=== PATIENT | female | born 1985 | race American Indian/Alaskan Native ===

== ENCOUNTER 2020-02-12 03:43 | Emergency (ER) | payer SELFPAY ==
--- NOTE | 2020-02-12 04:58 | Emergency Department Report ---
<SHANTHIDILIP - Last Filed: 02/12/20 06:33> ED Chest Pain HPI - General Chief Complaint: Chest Pain Stated Complaint: ANXIETY Source: patient, EMS Mode of arrival: Ambulatory Limitations: No Limitations - History of Present Illness Initial Comments: Patient is a 34-year-old -[place] female with a history of chronic anxiety and heavy alcohol abuse who presents to the ED with a complaint of acute onset persistent substernal chest pain with shortness of breath and palpitations for the last 2 days. Patient states that she has been drinking alcohol heavily and that the last time she drank alcohol was 6 hours prior to arrival in the ED. Patient states that about 2 days ago she drank alcohol heavily at a club and that the symptoms have been persistent since then. Patient states that she has not been able to sleep because each time she lays down to sleep her symptoms get worse and she has been scared. Patient also complains of intermittent nausea and vomiting which gets worse when she lays down to sleep. Patient denies dizziness, syncope, abdominal pain, sore throat, headache, change in vision, seizures, dysuria, urinary frequency and urgency, back pain or cough. MD Complaint: chest pain -: days(s) (2) Onset: during rest, other (Heavy alcohol abuse) Pain Location: substernal Pain Radiation: none Severity: severe Severity scale (0 -10): 7 Quality: aching, sharp Consistency: constant Improves With: remaining still, other (sitting still) Worsens With: supine, palpation, movement Context: other (Heavy alcohol abuse) re: nausea, vomting, dyspnea. denies: diaphoresis, sense of impending doom Other Symptoms: palpitations. denies: cough, fever, syncope, rash, acid taste in mouth, leg swelling, burping Treatments Prior to Arrival: none Aspirin use within the Past 7 Days: (0) No - Related Data On Oral Contraceptives: No Previous Rx's Medication Instructions Recorded Last Taken Type Famotidine [Pepcid] 20 mg PO BID #60 tablet 02/12/20 Unknown Rx Naproxen 500 mg PO Q12H PRN #30 tablet 02/12/20 Unknown Rx Ondansetron [Zofran Odt] 4 mg PO Q6HR PRN #20 tab.rapdis 02/12/20 Unknown Rx hydrOXYzine PAMOATE [Vistaril] 25 mg PO Q12HR PRN #30 capsule 02/12/20 Unknown Rx Allergies Allergy/AdvReac Type Severity Reaction Status Date / Time No Known Allergies Allergy Unverified 02/12/20 04:08 Heart Score - HEART Score History: Slightly suspicious EKG: Normal Age: < 45 Risk factors: No known risk factors Troponin: < normal limit HEART Score: 0 - Critical Actions Critical Actions: 0-3 pts:0.9-1.7%risk of adverse cardiac event.Candidate for discharge ED Review of Systems Constitutional: malaise, other (Anxious). denies: chills, fever Eyes: denies: eye pain, eye discharge, vision change ENT: denies: ear pain, throat pain Respiratory: denies: cough, shortness of breath, wheezing Cardiovascular: chest pain (Substernal chest pain), palpitations, dyspnea on exertion. denies: edema, syncope, paroxysmal nocturnal dyspnea Endocrine: no symptoms reported Gastrointestinal: nausea, vomiting. denies: abdominal pain, diarrhea Genitourinary: denies: urgency, dysuria, discharge Musculoskeletal: denies: back pain, joint swelling, arthralgia Skin: denies: rash, lesions Neurological: headache. denies: weakness, paresthesias Psychiatric: anxiety, depression. denies: auditory hallucinations, visual hallucinations, homicidal thoughts, suicidal thoughts Hematological/Lymphatic: denies: easy bleeding, easy bruising ED Past Medical Hx - Past Medical History Previous Medical History?: Yes Hx Psychiatric Treatment: Yes (Anxiety) - Surgical History Past Surgical History?: No - Social History Smoking Status: Never Smoker Substance Use Type: None - Medications Home Medications: Home Medications Medication Instructions Recorded Confirmed Last Taken Type Famotidine [Pepcid] 20 mg PO BID #60 tablet 02/12/20 Unknown Rx Naproxen 500 mg PO Q12H PRN #30 tablet 02/12/20 Unknown Rx Ondansetron [Zofran Odt] 4 mg PO Q6HR PRN #20 tab.rapdis 02/12/20 Unknown Rx hydrOXYzine PAMOATE [Vistaril] 25 mg PO Q12HR PRN #30 capsule 02/12/20 Unknown Rx ED Physical Exam - General Limitations: No Limitations General appearance: alert, in no apparent distress, anxious - Head Head exam: Present: atraumatic, normocephalic, normal inspection - Eye Eye exam: Present: normal appearance, PERRL, EOMI Pupils: Present: normal accommodation - ENT ENT exam: Present: normal exam, normal orophraynx, mucous membranes moist, TM's normal bilaterally, normal external ear exam - Neck Neck exam: Present: normal inspection, full ROM - Respiratory Respiratory exam: Present: normal lung sounds bilaterally, chest wall tenderness (Palpable reproducible substernal chest wall tenderness). Absent: respiratory distress, wheezes, rales, stridor, accessory muscle use - Cardiovascular Cardiovascular Exam: Present: regular rate, normal rhythm, normal heart sounds. Absent: systolic murmur, diastolic murmur, rubs, gallop - GI/Abdominal GI/Abdominal exam: Present: soft, normal bowel sounds. Absent: distended, tenderness, guarding, hyperactive bowel sounds, hypoactive bowel sounds, organomegaly - Extremities Exam Extremities exam: Present: normal inspection, full ROM, normal capillary refill - Back Exam Back exam: Present: normal inspection, full ROM. Absent: tenderness, CVA tenderness (R), CVA tenderness (L), paraspinal tenderness - Neurological Exam Neurological exam: Present: alert, oriented X3, CN II-XII intact, normal gait, reflexes normal - Psychiatric Psychiatric exam: Present: flat affect - Skin Skin exam: Present: warm, dry, intact, normal color. Absent: rash JENS score - Jens Score Age > 65: (0) No Aspirin use within the Past 7 Days: (0) No 3 or more CAD Risk Factors: (0) No 2 or more Angina events in past 24 hrs: (0) No Known CAD with more than 50% Stenosis: (0) No Elevated Cardiac Markers: (0) No ST Deviation Greater than 0.5mm: (0) No JENS Score: 0 ED Medical Decision Making - Lab Data Result diagrams: 02/12/20 04:33 02/12/20 04:33 - EKG Data EKG shows normal: sinus rhythm Rate: normal - EKG Data Interpretation: normal EKG 02/12/20 06:39 The EKG shows normal sinus rhythm with a ventricular rate of [address] or T wave abnormalities. - Radiology Data Radiology results: report reviewed, image reviewed Findings [facility] [address] [place] [address] XRay Report Signed Patient: AVNI SANTIAGO MR#: [id number] : 1985 Acct:[id number] Age/Sex: 34 / F ADM Date: 02/12/20 Loc: ED Attending Dr: Ordering Physician: MIGNON HIDALGO III, MD Date of Service: 02/12/20 Procedure(s): XR chest 1V ap Accession Number(s): [id number] cc: MIGNON HIDALGO III, MD Fluoro Time In Minutes: CHEST 1 VIEW INDICATION / CLINICAL INFORMATION: Chest Pain. COMPARISON: None available. FINDINGS: SUPPORT DEVICES: None. HEART / MEDIASTINUM: No significant abnormality. LUNGS / PLEURA: No significant pulmonary or pleural abnormality. No pneumothorax. ADDITIONAL FINDINGS: No significant additional findings. IMPRESSION: 1. No acute findings. Signer Name: Gwendolyn Seth MD Signed: 02/12/2020 5:41 AM Workstation Name: [id number] Transcribed By: [facility] Dictated By: Gwendolyn Seth MD Electronically Authenticated By: Gwendolyn Seth MD Signed Date/Time: 02/12/20540 DD/ 0 TD/TT: - Medical Decision Making This is a 34-year-old -[place] female with a history of chronic anxiety and heavy alcohol abuse who presents to the ED with a complaint of acute onset persistent substernal chest pain with shortness of breath and palpitations for the last 2 days. Patient states that she has been drinking alcohol heavily and that the last time she drank alcohol was 6 hours prior to arrival in the ED. Patient states that about 2 days ago she drank alcohol heavily at a club and that the symptoms have been persistent since then. Patient states that she has not been able to sleep because each time she lays down to sleep her symptoms get worse and she has been scared. Patient also complains of intermittent nausea and vomiting which gets worse when she lays down to sleep. In the ED, patient is alert and oriented x3 and is not in distress but extremely anxious during the physical exam. The EKG shows normal sinus rhythm with a ventricular rate of [address] or T wave abnormalities. Chest x-ray shows no acute cardiopulmonary abnormalities or pneumonitis. Patient was treated in the ED for anxiety, pain, nausea and vomiting, also given normal saline 1 L IV bolus x1. Lab test results were reviewed and are all nonactionable including initial troponin levels. Other lab test results are pending including urine drug screen, urinalysis and repeat troponin levels. On reevaluation, patient anxiety improved significantly and the chest wall pain also almost resolved. Patient resting comfortably in the room chewing ice and smiling on reevaluation. Patient is hemodynamically stable at this time. Patient care was transferred to Audrey Mohini BRENNAN at shift change at 0700 hrs. She shall review all lab test results and disposition the patient accordingly. - Differential Diagnosis ACS; anxiety; pneumonia; drug abuse; costochondritis; muscle strain; GERD ED Disposition Clinical Impression: Acute nonspecific chest pain with low risk of coronary artery disease, Acute costochondritis, Anxiety as acute reaction to exceptional stress, Chronic alcohol abuse, Nausea and vomiting in adult patient Disposition: - TO HOME OR SELFCARE Is pt being admited?: No Does the pt Need Aspirin: No Condition: Stable Instructions: Generalized Anxiety Disorder, Adult, Costochondritis, [id number], Alcohol Abuse and Dependence Information, Adult, Chest Wall Pain, [id number], Nausea and Vomiting, Adult, [id number], Nonspecific Chest Pain, Adult, [id number], Chest Pain (ED) Additional Instructions: All lab test results were reviewed and are all nonactionable. Chest x-ray shows no acute cardiopulmonary abnormalities or pneumonitis. Based on your history and physical exam findings, lab test results and imaging reports, your symptoms are likely due to chest wall pain or inflammation as well as worsening anxiety due to chronic alcohol abuse. Consider alcohol rehab. Take medications for anxiety and follow-up with a primary care physician in 3 to 5 days for reevaluation. Return to the ED immediately if symptoms get worse. Prescriptions: Naproxen 500 mg PO Q12H PRN #30 tablet PRN Reason: chest wall pain Famotidine [Pepcid] 20 mg PO BID #60 tablet hydrOXYzine PAMOATE [Vistaril] 25 mg PO Q12HR PRN #30 capsule PRN Reason: Anxiety and insomnia Ondansetron [Zofran Odt] 4 mg PO Q6HR PRN #20 tab.rapdis PRN Reason: Nausea Referrals: [facility] [Provider Group] - 3-5 Days Time of Disposition: 06:50 Print Language: IRAQI <EJ WEBB - Last Filed: 02/12/20 10:41> ED Review of Systems ROS: Stated complaint: ANXIETY Other details as noted in HPI ED Course Vital Signs 02/12/20 02/12/20 02/12/20 04:05 06:14 07:36 Temperature 98.8 F Pulse Rate 82 97 H Respiratory 16 16 Rate Blood Pressure 151/76 115/68 O2 Sat by Pulse 99 98 100 Oximetry ED Medical Decision Making - Lab Data Result diagrams: 02/12/20 04:33 02/12/20 04:33 Critical care attestation.: If time is entered above; I have spent that time in minutes in the direct care of this critically ill patient, excluding procedure time. ED Disposition Time of Disposition: 10:38
[2020-02-12 05:09] LABS: Hematocrit 26.4 % (30.3-42.9); Hemoglobin 8.3 gm/dl (10.1-14.3); Mean Corpuscular HGB Conc 32 % (30-34); Mean Corpuscular Volume 75 fl (79-97); Platelet Count 168 K/mm3 (140-440); Red Blood Count 3.53 M/mm3 (3.65-5.03)
[2020-02-12] MEDS ORDERED: ONDANSETRON 4 MG/2 ML INJ IV ONE (05:10)
[2020-02-12] MEDS ORDERED: SODIUM CHLORIDE 0.9% 1000 ML 1,000 ML IV ONE (05:10)
[2020-02-12] MEDS ORDERED: FAMOTIDINE 20 MG/2 ML INJ IV ONE (05:10)
[2020-02-12] MEDS ORDERED: KETOROLAC 30 MG/1 ML INJ IV ONE (05:10)
[2020-02-12] MEDS ORDERED: LORazepam 2 MG/ML VIAL IV ONE (05:11)
[2020-02-12 05:14] LABS: Red Cell Distribution Width 22.4 % (13.2-15.2)
[2020-02-12 05:27] LABS: Blood Urea Nitrogen 5 mg/dL (7-17); Calcium 9.1 mg/dL (8.4-10.2); Hemolysis Index 0
[2020-02-12 05:34] LABS: BUN/Creatinine Ratio 8
--- NOTE | 2020-02-12 05:46 | XRay Report ---
CHEST 1 VIEW INDICATION / CLINICAL INFORMATION: Chest Pain. COMPARISON: None available. FINDINGS: SUPPORT DEVICES: None. HEART / MEDIASTINUM: No significant abnormality. LUNGS / PLEURA: No significant pulmonary or pleural abnormality. No pneumothorax. ADDITIONAL FINDINGS: No significant additional findings. IMPRESSION: 1. No acute findings. Signer Name: Gwendolyn Seth MD Signed: 02/12/2020 5:41 AM Workstation Name: [id number]
[2020-02-12 06:15] LABS: Alanine Aminotransferase 22 units/L (7-56); Albumin 4.7 g/dL (3.9-5)
[2020-02-12 06:27] LABS: Bilirubin,Direct < 0.2 mg/dL (0-0.2)
[2020-02-12 06:42] LABS: Anisocytosis 1+; Basophils % (Manual) 0 % (0.0-1.8); Hypochromasia 1+; Macrocytosis Few; Ovalocytes Few; Platelet Estimate Consistent w Auto; Target Cells 1+; Total Cells Counted 100
[2020-02-12 09:05] LABS: Bilirubin,Urine NEG (Negative); Blood,Urine LG (Negative); Color,Urine Yellow (Yellow); Mucus,Urine 3+ /HPF; Urobilinogen,Urine < 2.0 mg/dL (<2.0)
[2020-02-12 09:11] LABS: Amphetamine Screen,Urine Negative; Benzodiazepines Screen,Urine Negative; Cannabinoid Screen,Urine Negative; Methadone Screen,Urine Negative; Opiate Screen,Urine Negative
[2020-02-12 09:12] LABS: Protein,Urine >500 mg/dL (Negative)
[2020-02-12 09:13] LABS: RBC,Urine > 182.0 /HPF (0.0-6.0)
[2020-02-12 09:26] LABS: Cocaine Screen,Urine Positive
[2020-02-12 11:06] VITALS: BP 127/62
== END 2020-02-12 11:05 | disposition home or self-care (01) ==
LOC: ED 03:43
DX: M94.0 Chondrocostal junction syndrome [Tietze] (principal); R11.2 Nausea with vomiting, unspecified; R07.89 Other chest pain; I25.10 Atherosclerotic heart disease of native coronary artery without angina pectoris; F41.1 Generalized anxiety disorder; F43.0 Acute stress reaction; F10.10 Alcohol abuse, uncomplicated; Z79.899 Other long term (current) drug therapy
CPT/HCPCS: 36415; 71045; 80048; 80076; 80307; 81001; 83690; 84484; 84703; 85007; 85025; 93005; 96361; 96374; 96375; 99284; J1885; J2060; J2405; J7030; 80320; G0480